=== PATIENT | female | born 1960 | race Caucasian/White ===

== ENCOUNTER 2018-05-10 01:34 | Emergency (ER) | payer OTHER, SELFPAY ==
[2018-05-10 01:37] VITALS: BP 146/83; PULSE 82; RESP 22; TEMP 36.6; O2SAT 97
--- NOTE | 2018-05-10 01:53 | W.ED.GENAD ---
Discharge Plan Disposition Patient Disposition: HOME Condition: Good Discharge Details Chief Complaint: Nausea/Vomit/Diar Clinical Impression: [facility] ED Provider: Alessandro Barba Home Meds and New Rx's Prescriptions: New ondansetron HCl [Zofran] 4 mg tablet 4 mg PO TID PRN (Reason: nausea and vomiting) 5 Days Qty: 7 RF: 0 No Action multivitamin Tablet 1 tab PO DAILY RF: 0 levothyroxine [Synthroid] 25 mcg Tablet 25 mcg PO DAILY RF: 0 etanercept [Enbrel] 25 mg (1 mL) Recon Soln 50 mg SUBCUT QWEEK RF: 0 ibuprofen [Advil] 200 mg Tablet 400 mg PO PRN PRNRF: 0 Discharge Instructions Instructions: [facility] (ED) Additional Instructions: Please drink 8-10 cups of clear liquids per day. The next 24-hour only drink clear liquids. After that you can very slowly progressed towards a normal diet over the next 72 hours. If you notice any vomiting whatsoever, any return of your pain, please return immediately. If you notice any worsening of your symptoms, or any new symptoms such as vomiting, diarrhea, fever, chills, shortness of breath, chest pain, numbness, weakness, or fainting , please return immediately to the emergency department for reevaluation. Please follow up with your primary care provider as soon as possible for reassessment and reevaluation. As always, it was a pleasure participating in your medical care today. Medical Decision Making This is a 58-year-old female who presents with severe abdominal cramping, and 3 episodes of associated vomiting over the last 1-2 hours. It comes and goes every few minutes. It is severe at its worst. It is moderate at its best. She has a previous surgery of an appendectomy, and thyroid cancer. She denies any symptoms like this before. Physical exam shows no significant abdominal tenderness, over the patient is in exquisite tenderness with her cramping. No history of reflux. No burning in her throat or esophagus. And concern for potential small bowel obstruction, volvulus, or pancreatitis. We will get a CT scan to rule out any acute process. She has been unable to tolerate anything p.o. and immediately vomits it back up. With no chest pain arm pain or shoulder pain I do not feel that her symptoms are secondary to a cardiac etiology as this would be inconsistent with her current clinical picture. On reassessment the patient now states that she forgot to mention that she has been taking an increase in Advil secondary to some chronic extremity pain, we will add a GI cocktail, Zofran and Protonix. Although I feel this less likely to be the focal cause of her current symptomatology. 3:04 AM Patient's laboratory workup has returned and she demonstrates no significant leukocytosis, no significant abnormalities. Urinalysis is relatively benign, no evidence of significant urinary tract infection with only trace leuk esterase, negative nitrites, 30 urine with urine epithelial cells, and 20-50 WBCs. Additionally she has no symptoms of dysuria or increased urinary frequency. More importantly there is no evidence of significant hematuria. I do not think There is an indication for treatment at this time. The patient CT scan has returned, and per virtual radiology small bowel ileus or early evidence of small bowel obstruction. Some hepatic cysts are noted. Small bowel loops are at the upper limits of normal caliber.Reevaluation of the patient she now states that she is 100% pain-free. She has been able to tolerate some fluid here orally, as well as her IV fluid. I discussed admission, and potential NG tube, and she is refusing NG tube at this time, states that she would rather go home. I discussed with her the added benefit of admission for continued IV fluids, and some bowel rest, however the patient is very adamant that she would much rather go home as she now feels perfectly fine, and has been able to drink some fluids. I recommended that we try a large amount of oral fluids, and wait for an additional hour. If she continues to be pain-free, and is able to tolerate p.o. well, going home would potentially be reasonable although not necessarily recommended option. 4 a.m. Patient has tolerated p.o. fluids very well, she has had no vomiting, no abdominal pain, and feels extremely well. She is requesting discharge home. We had a long and thorough discussion with her and her regarding symptoms for which to return, signs and symptoms concerning for obstruction, the importance of a clear liquid diet for the next 24 hours with a slow progression towards a normal diet over the next 72 hours after that. We discussed the importance of close follow-up here in the emergency department while she is here at her vacation home or with her primary care provider when she returns on Monday to her home town. I have extensively reviewed the treatment plan and discharge instructions with the patient and their family. I have addressed all patient concerns at this time. The patient and family was made aware of what symptoms to monitor for that would warrant a return to the emergency department. Discussed the plan with the patient and family, they demonstrate verbal understanding and agreement with our assessment and plan at this time. HPI General Date/Time Provider Initiated Documentation: 05/10/18 01:50. HPI Narrative: This is a 58-year-old female with no significant past medical history except for thyroid cancer with excision, and appendectomy and rheumatoid arthritis. She presents today for evaluation of cramping and vomiting. patient states that earlier this evening she had mild cramping, however she ate a salad for dinner, and had one glass of wine. She had no problems tolerating p.o. However over the last hour and 1/2-2 hours the patient has had a severe increase in the cramping, which she now describes as severe. It comes and goes and is colicky in nature. There are no aggravating or relieving factors. She has vomited, and made herself vomit and this does not improve her symptoms. She denies any hematemesis, hematochezia melena or acholic stool. She denies any diarrhea. She denies any other sick contacts. Family members and significant others do not have similar symptoms. She denies any recent antibiotics or foreign travel. She denies any new foods, seafood, or foreign foods. She denies any recent camping, or travel. She denies ever having symptoms like this in the past. She has no other complaints at this time. She denies any pertinent family history. She denies any IV or illicit drug use. Related Data Home Medications Medication Instructions Recorded Confirmed etanercept [Enbrel] 50 mg SUBCUT QWEEK 05/10/18 05/10/18 ibuprofen [Advil] 400 mg PO PRN PRN 05/10/18 05/10/18 levothyroxine [Synthroid] 25 mcg PO DAILY 05/10/18 multivitamin 1 tab PO DAILY 05/10/18 05/10/18 ondansetron HCl [Zofran] 4 mg PO TID PRN 5 Days #7 tab 05/10/18 Previous Rx's Medication Instructions Recorded ondansetron HCl [Zofran] 4 mg PO TID PRN 5 Days #7 tab 05/10/18 Allergies Allergy/AdvReac Type Severity Reaction Status Date / Time Penicillins Allergy Unverified 05/10/18 01:41 General Stated Complaint: Nausea/Vomit/Diar DEMAR: 3 Review of Systems Review of Systems 10 point review of systems was performed, pertinent positives and negatives are noted in the history of present illness. [facility] Social History Smoking/Tobacco Use Status: Never Exam Narrative Exam Narrative: 1.Const: Well-nourished, Well-developed, appearing stated age 2.Eyes: PERRL, no conjunctival injection, and symmetrical lids. 3.ENT: Atraumatic external nose and ears. Moist MM. Neck: Symmetric, trachea midline, No thyromegaly. 4.CVS: +S1/S2, No murmurs or gallops. Peripheral pulses 2+ and equal in all extremities. Brisk capillary refill in all extremities. 5.RESP: Unlabored respiratory effort. Clear to auscultation bilaterally. No wheezes rales or rhonchi 6.GI: Soft, nondistended. No focal tenderness. Minimal achiness throughout, but no significant tenderness. No pain at McBurney's point, negative Kee sign. No CVA tenderness. No guarding or rebound. No organomegaly. 7.MSK: Normocephalic/Atraumatic, Extremities w/o deformity or ttp No cyanosis or clubbing, Normal movement of all extremities 8.Skin: Warm, Dry. No rashes or lesions. 9.Neuro: superintendent tests II-XII grossly intact. Sensation grossly intact, no focal neurologic deficits. 10.Psych: (AAO) x3. Appropriate mood and affect Course Vital Signs Temperature 36.6 C 05/10/18 01:37 Pulse 82 05/10/18 01:37 Respiratory Rate 22 05/10/18 01:37 Blood Pressure 146/83 H 05/10/18 01:37 Pulse Oximetry 97 05/10/18 01:37 Temperature 36.6 C 05/10/18 01:37 Temperature Source Skin 05/10/18 01:37 Pulse 82 05/10/18 01:37 Respiratory Rate 22 05/10/18 01:37 Respiratory Effort Non-Labored 05/10/18 01:40 Blood Pressure 146/83 H 05/10/18 01:37 Blood Pressure Position Sitting 05/10/18 01:37 Pulse Oximetry 97 05/10/18 01:37 Oxygen Delivery Method Room Air 05/10/18 01:37 Oxygen Flow Rate 0 05/10/18 01:37 Pain Level 8 05/10/18 01:37
[2018-05-10] MEDS: Lactated Ringers 1,000 ML 1000 ML IV (01:55)
[2018-05-10] MEDS: Ondansetron 4 MG/2 ML VIAL IVP (02:04)
[2018-05-10 02:06] LABS: Abs Immature Grans 0.01 k/cumm (0.0-0.09); Absolute Basophil Count 0.01 k/cumm (0.0-0.2); Absolute Eosinophil Count 0.17 k/cumm (0.0-0.7); Absolute Lymphocyte Count 1.06 k/cumm (1.2-3.4); Absolute Monocyte Count 0.77 k/cumm (0.11-0.7); Absolute Neutrophil Count 7.12 k/cumm (1.2-6.7); Basophils % 0.1; Eosinophils % 1.9; HCT 39.7 % (36.0-46.0); HGB 14.2 g/dL (12.0-15.5); Immature Grans % 0.1; Lymphocytes % 11.6; Mean Corp. HGB Concentration 35.8 g/dL (32.0-36.0); Mean Corpuscular Hemoglobin 30.9 pg (27.0-33.0); Mean Corpuscular Volume 86.3 fL (80-95); Mean Platelet Volume 10.6 fL (8.0-11.0); Monocytes % 8.4; Neutrophils % 77.9; Platelet Count 238 x1000/uL (130-400); RBC Distribution Width 12.4 % (11.7-14.6); White Blood Cell Count 9.14 k/cumm (4.4-10.8)
[2018-05-10] MEDS: HYDROmorphone 2 MG/ML VIAL 1 MG IVP (02:06)
[2018-05-10 02:18] LABS: ALT 36 U/L (12-78); AST 24 U/L (15-37); Alkaline Phosphatase 112 U/L (46-116); Anion Gap 11.2 mmol/L (3-11); BUN 18 mg/dL (7-18); Bilirubin, Total 0.8 mg/dL (0.2-1.0); CO2 28.8 mmol/L (21.0-32.0); CREATININE 0.66 mg/dL (0.55-1.02); Calcium 9.3 mg/dL (8.5-10.1); Chloride 101 mmol/L (98-107); Glucose 117 mg/dL (70-100); Lipase 130 U/L (73-393); Sodium 141 mmol/L (136-145)
--- NOTE | 2018-05-10 02:35 | DI.CT_ITS ---
SYMPTOM/DIAGNOSIS: COLICKY ABD PAIN, GENERALIZED AND SEVERE, VOMITING CT ABDOMEN AND PELVIS: The study was carried out with an intravenous injection of 100 cc Omnipaque 350 The lung bases are unremarkable. Multiple simple cysts are demonstrated in the liver measuring up to 6 cm in diameter. The gallbladder is unremarkable. There are no gallstones. There is no evidence of biliary dilatation. The pancreas and spleen and adrenals are unremarkable. Note is made of a 5 mm nonobstructing left renal calculus. A 2 mm nonobstructing right renal calculus is seen. Note is made of many small bowel loops which are at the upper limits of normal in caliber and have air fluid levels. The distal ileum is relatively decompressed. A transition point is not identified. There is no mucosal thickening. The patient is status post appendectomy. The bladder is unremarkable. The reproductive organs as visualized are unremarkable. There is no evidence of free air or free fluid in the intraperitoneal space. No acute bony abnormality is seen. No soft tissue abnormality seen. There is no aortic aneurysm. There are no enlarged lymph nodes. SUMMARY: The findings would be consistent with a small bowel ileus or early small bowel obstruction.
[2018-05-10] MEDS: Omnipaque 350 MG/ML 100 ML BTL IJ (02:41)
[2018-05-10 02:45] LABS: Bilirubin Negative (Negative); Blood Negative (Negative); Clarity Sl Cloudy; Glucose Negative (Negative); Ketones Negative (Negative); Leukocyte Esterase Trace (Negative); Nitrite Negative (Negative); Urobilinogen 0.2 EU/dL (Up TO 0.2); pH >= 9.0 (5-8)
[2018-05-10] MEDS: Pantoprazole 40 MG VIAL IVP (02:47)
--- NOTE | 2018-05-10 02:50 | DI.VRAD_ITS ---
EXAM: CT Abdomen and Pelvis With Intravenous Contrast CLINICAL HISTORY: 58 years old, female; Pain; Abdominal pain; Generalized; Prior surgery; Surgery date: 6+ months; Surgery type: Appendix removed; Patient HX: Severe abdominal pain and tightness; Additional info: HX of thyroid cancer and kidney stones TECHNIQUE: Axial computed tomography images of the abdomen and pelvis with intravenous contrast. All CT scans at this facility use at least one of these dose optimization techniques: automated exposure control; mA and/or kV adjustment per patient size (includes targeted exams where dose is matched to clinical indication); or iterative reconstruction. Coronal and sagittal reformatted images were created and reviewed. CONTRAST: 100 mL of Omnipaque 350 administered intravenously. COMPARISON: No relevant prior studies available. FINDINGS: Lung bases: Unremarkable. No mass. No consolidation. ABDOMEN: Liver: Multiple simple appearing hepatic cysts measuring up to 6 cm in diameter. Gallbladder and bile ducts: Unremarkable. No calcified stones. No ductal dilation. Pancreas: Unremarkable. No mass. No ductal dilation. Spleen: Unremarkable. No splenomegaly. Adrenals: Unremarkable. No mass. Kidneys and ureters: 5 mm nonobstructing left renal calculus. 2 mm nonobstructing right renal calculus. Stomach and bowel: There are many small bowel loops which are upper limits of normal in caliber and have air fluid levels. The distal ileum is relatively decompressed. Transition point is not identified. No mucosal thickening. PELVIS: Appendix: History of an appendectomy. Bladder: Unremarkable. No mass. Reproductive: Unremarkable as visualized. ABDOMEN and PELVIS: Intraperitoneal space: Unremarkable. No free air. No significant fluid collection. Bones/joints: No acute fracture. No dislocation. Soft tissues: Unremarkable. Vasculature: Unremarkable. No abdominal aortic aneurysm. Lymph nodes: Unremarkable. No enlarged lymph nodes. IMPRESSION: Small bowel ileus or early evidence of small bowel obstruction. Dictated and Authenticated by: Bronson Alfredo MD. Ordering:SACHA NORIEGA MD
[2018-05-10 02:53] VITALS: BP 140/69; PULSE 71; RESP 16; TEMP 37; O2SAT 100
[2018-05-10 02:53] LABS: Bacteria Moderate HPF (Negative); C & S Indicated? Yes; Casts Negative LPF (Negative); Crystals Negative HPF (Negative); Epithelial Cells Rare HPF (Negative); Mucus Negative (Negative); RBC 0-2 (0-2); WBC 20-50 HPF (0-5)
[2018-05-10 03:55] VITALS: BP 135/75; PULSE 78; RESP 16; TEMP 37.1; O2SAT 98
== END 2018-05-10 04:01 | disposition home or self-care (01) ==
LOC: ER 04:09
PROVIDERS: Emergency Provider Student in an Organized Health Care Education/Training Program
DX: K56.7 Ileus, unspecified (principal)
CPT/HCPCS: 36415; 80053; 83690; 87077; 96361; 96374; 96375; 99285; 74177; 81003; 81015; 85025; 87086; 87186; J2405; J3490